=== PATIENT | male | born 1925 | race African-American/Black ===

== ENCOUNTER 2016-07-24 13:58 | Outpatient (CLI) | payer MEDICARE, BC | END 2016-07-24 13:59 | disposition home or self-care (01) | LOC: NAV LAB 13:58 | PROVIDERS: ATTEND Internal Medicine Sleep Medicine | DX: R91.1 Solitary pulmonary nodule (principal) | CPT/HCPCS: 36415; 82565 ==

== ENCOUNTER 2016-07-26 09:56 | Outpatient (CLI) | payer MEDICARE, BC ==
--- NOTE | 2016-07-26 13:16 | CT ---
CT THORAX WITH IV CONTRAST 07/26/2016 HISTORY: Followup pulmonary nodule. COMPARISON: 10/21/2015 FINDINGS: There has been significant interval improvement in the nodular density bilaterally, as well as signi ficant improvement and almost complete resolution of the reticulonodular opacities bilaterally. No discrete measureable nodular density is present on the right, although a few minimal reticulonodular densities do persist, which may be related to a persistent infectious or inflammatory process. The re is an approximately 5 mm, noncalcified pulmonary nodule in the left upper lobe, which is stable i n size. No new discrete pulmonary nodular mass is seen. Calcified granulomata are again seen in th e left lower lobe. Calcified mediastinal and hilar lymph nodes are again present. Vascular calcification is seen in the coronary arteries, in the thoracic, as well as visualized abdo khadijah aorta. 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 There is atrophy of the right kidney, which was also present on a prior exam. Prominent vascular ca lcifications are again seen in the renal arteries bilaterally. A 2.2 cm low density lesion is seen within the superior pole, left kidney, demonstrating fluid attenuation, suggesting a cyst. There is a hiatal hernia present, with surgical clips seen in the lower mediastinum and epigastric r egion, as well as post cholecystectomy changes present. No other interval change. IMPRESSION: 1. Significant interval improvement and almost complete resolution of reticulonodular opacities see n throughout the right lung, which were greatest in the right upper lobe. A few minimal residual li near densities are present, which may be related to mild scarring or residual inflammatory changes. 2. Noncalcified left upper lobe pulmonary nodule, measuring 5 mm, which is stable in size, compared to the prior exam. Continued followup is recommended. Additional follow-up CT exam is recommended in six months to one year. 3. Atrophy of the right kidney. 4. Superior pole left renal cyst. 5. Post surgical changes related to cholecystectomy, as well as surgical clips in the epigastric re gion and involving loops of bowel in the upper abdomen. 6. Small hiatal hernia. 7. 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 POS: [facility]
== END 2016-07-26 09:57 | disposition home or self-care (01) ==
LOC: NAV CT 09:56
PROVIDERS: ATTEND Internal Medicine Sleep Medicine
DX: R91.1 Solitary pulmonary nodule (principal); K44.9 Diaphragmatic hernia without obstruction or gangrene
CPT/HCPCS: 71260

== ENCOUNTER 2016-11-10 10:47 | Outpatient (CLI) | payer MEDICARE, BC ==
[2016-11-10 12:35] LABS: ALT (SGPT) 7 U/L (8-55); AST (SGOT) 14 U/L (5-34); Albumin 3.6 g/dL (3.4-4.8); Alkaline Phosphatase 93 U/L (40-150); Anion Gap 15 mmol/L (10-20); BUN (Urea Nitrogen) 26 mg/dL (8.4-25.7); Bilirubin, Total 0.2 mg/dL (0.2-1.2); Calc. Creatinine Clearance 0 mL/min (70-130); Carbon Dioxide 22 mmol/L (23-31); Chloride 110 mmol/L (98-107); Cholesterol 172 mg/dl (< 200 Desired); Estimated GFR-MDRD 47; Globulin 4.4 g/dL (2.4-3.5); Glucose 83 mg/dL (83-110); HDL Cholesterol 58 mg/dL (>60 Neg Risk); LDL Cholesterol, Calculated 95 mg/dL; Potassium 4.5 mmol/L (3.5-5.1); Sodium 142 mmol/L (136-145); Triglycerides 95 mg/dL (Less than 150)
[2016-11-10 13:32] LABS: Bilirubin Negative (Negative); Blood, Urine Negative (Negative); Clarity Clear (Clear); Glucose, Urine (Dipstick) Negative (Negative); Leukocyte Negative (Negative); Nitrite Negative (Negative); Protein, Urine (Dipstick) Trace mg/dL (Neg-Trace); Urobilinogen 0.2 mg/dL (0.2-1.0); pH, Urine 5.5 (5.0-9.0)
[2016-11-10 13:40] LABS: #Basophils 0.1 thou/uL (0.0-0.2); #Eosinphils 0.2 thou/uL (0.0-0.7); #Lymphocytes 1.6 thou/uL (1.20-3.40); #Monocytes 0.3 thou/uL (0.11-0.59); %Basophils 1.2 % (0.0-1.0); %Eosinophils 3.5 % (0.0-10.0); %Lymphocytes 31.1 % (21.0-51.0); %Monocytes 5.5 % (0.0-10.0); %Neutrophils 58.7 % (42.0-75.0); Anisocytosis SLIGHT = 6-15 cells (100X) (0-5/hpf); Hemoglobin 9.3 g/dL (14.0-18.0); Hypochromia SLIGHT = 6-15 cells (100X) (0-5/hpf); MDiff Complete? YES; Mean Corpuscular HGB CONC 29.2 g/dL (32.0-36.0); Mean Corpuscular Hemoglobin 24.5 pg (27.0-31.0); Mean Corpuscular Volume 83.9 fl (80.0-94.0); Mean Platelet Volume 5.5 fL (7.4-10.4); PLT Morphology Comment Appears Adequate; Platelet Count 303 thou/uL (130-400); RBC Distribution Width 17.5 % (11.5-14.5); Red Blood Cell (RBC) Count 3.79 mill/uL (4.70-6.10); White Blood Cell (WBC) Count 5.1 thou/uL (4.8-10.8)
== END 2016-11-10 10:48 | disposition home or self-care (01) ==
LOC: NAVSJIPCSP 10:47 → NAV LAB 10:48
PROVIDERS: ATTEND Internal Medicine
DX: I11.9 Hypertensive heart disease without heart failure (principal); Z79.899 Other long term (current) drug therapy; N18.3 Chronic kidney disease, stage 3 (moderate)
CPT/HCPCS: 80053; 80061; 81003; 85025

== ENCOUNTER 2017-02-18 10:48 | Emergency (ER) | payer MEDICARE, BC ==
--- NOTE | 2017-02-18 11:46 | RAD ---
PORTABLE CHEST: Date: 02/18/17 HISTORY: Syncope. FINDINGS: The lungs are clear of infiltrate. No evidence of vascular congestion. Heart and mediastinum unremar kable. A calcified granuloma in the left lung base is noted. IMPRESSION: No acute process. POS: [facility]
--- NOTE | 2017-02-18 12:02 | CT ---
NONCONTRAST HEAD CT: Date: 02/18/17 HISTORY: Syncope. COMPARISON: None. TECHNIQUE: Noncontrast head CT is performed from skull base to skull vertex. FINDINGS: No parenchymal hemorrhage. No extra-axial hematoma. No midline shift. Basilar cisterns are patent. T here is malacic change involving the left occipital and parietal lobe. There is a remote lacunar inf arct involving the right hernandez radiata and right centrum semiovale. White matter hypodensities due to chronic small vessel ischemic changes are noted. No acute loss of lima-white matter differentiation is appreciated. Basilar cisterns are patent. No midline shift. Calvarium is intact. Chronic changes of the right maxillary sinus. 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 Mastoid air cells are adequately aerated. IMPRESSION: 1. No acute cardiopulmonary process. 2. 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 3. 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 POS: [facility]
[2017-02-18] MEDS ORDERED: Lidocaine 2% PF 100 mg/5 ml Syringe ONE (12:21)
[2017-02-18 12:44] LABS: #Basophils 0.1 thou/uL (0.0-0.2); #Eosinphils 0.1 thou/uL (0.0-0.7); #Monocytes 0.4 thou/uL (0.11-0.59); #Neutrophils 4.6 thou/uL (1.40-6.50); %Eosinophils 1.1 % (0.0-10.0); %Lymphocytes 15.8 % (21.0-51.0); %Monocytes 6.6 % (0.0-10.0); %Neutrophils 75.5 % (42.0-75.0); Hemoglobin 10.1 g/dL (14.0-18.0); Mean Corpuscular HGB CONC 30.4 g/dL (32.0-36.0); Mean Corpuscular Hemoglobin 25.8 pg (27.0-31.0); Mean Platelet Volume 6.2 fL (7.4-10.4); Platelet Count 296 thou/uL (130-400); RBC Distribution Width 18.8 % (11.5-14.5); Red Blood Cell (RBC) Count 3.91 mill/uL (4.70-6.10); White Blood Cell (WBC) Count 6.1 thou/uL (4.8-10.8)
[2017-02-18] MEDS ORDERED: Fentanyl 100 MCG/2 ML VIAL ONE (12:46)
[2017-02-18 12:57] LABS: ALT (SGPT) Less than 6 U/L (8-55); AST (SGOT) 11 U/L (5-34); Albumin 3.6 g/dL (3.4-4.8); Alkaline Phosphatase 101 U/L (40-150); Anion Gap 13 mmol/L (10-20); BUN (Urea Nitrogen) 27 mg/dL (8.4-25.7); Bilirubin, Total 0.4 mg/dL (0.2-1.2); CK (CPK) 38 U/L (30-200); Calc. Creatinine Clearance 0 mL/min (70-130); Carbon Dioxide 22 mmol/L (23-31); Chloride 107 mmol/L (98-107); Estimated GFR-MDRD 59; Globulin 4.4 g/dL (2.4-3.5); Glucose 107 mg/dL (83-110); Potassium 4.6 mmol/L (3.5-5.1); Sodium 137 mmol/L (136-145)
[2017-02-18 12:59] LABS: CKMB 2.4 ng/mL (0-6.6); Troponin I Less than 0.010 ng/mL (< 0.028)
== END 2017-02-18 14:22 | disposition short-term general hospital (02) ==
LOC: NAV ERS 10:48
DX: R55 Syncope and collapse (principal); R00.1 Bradycardia, unspecified; K21.9 Gastro-esophageal reflux disease without esophagitis; I10 Essential (primary) hypertension; Z86.73 Personal history of transient ischemic attack (TIA), and cerebral infarction without residual deficits; Z79.899 Other long term (current) drug therapy
CPT/HCPCS: 36680; 70450; 71010; 80053; 82553; 84484; 85025; 93005; 94760; J2001; J3010